=== PATIENT | male | born 1970 | race African-American/Black ===

== ENCOUNTER 2017-06-24 12:21 | Emergency (ER) | payer SELFPAY ==
[2017-06-24 12:50] VITALS: BP 169/102
[2017-06-24] MEDS ORDERED: Lidocaine 2% PF * 5 ML VIAL IV ONE (13:25)
--- NOTE | 2017-06-24 13:39 | UC ---
Laceration HPI - HPI Summary HPI Summary: 47 y/o male presents to the urgent care c/o Pt was loading a piece of steel with coworkers and got cut with it on L middle finger. Pt states it hit the bone. Pt states happened today around 1145. - History Of Current Complaint Chief Complaint: UCLaceration Stated Complaint: FINGER LACERATION Time Seen by Provider: 06/24/17 13:37 Hx Obtained From: Patient Pain Intensity: 7 - Allergies/Home Medications Allergies/Adverse Reactions: Allergies Allergy/AdvReac Type Severity Reaction Status Date / Time shellfish derived Allergy Swelling Verified 06/24/17 12:41 PMH/Surg Hx/FS Hx/Imm Hx - Surgical History Surgical History: None - Social History Alcohol Use: None Substance Use Type: None Smoking Status (MU): Never Smoked Tobacco Physical Exam - Summary Physical Exam Summary: Vital Signs Reviewed: Yes General: well developed, well nourished male sitting in the examining table w/ o any apparent distress Eye Exam: Normal Eyes: Positive: Conjunctiva Clear - PERRLA, EOMI, fundi grossly normal ENT: Positive: Normal ENT inspection, Hearing grossly normal, Pharynx normal, TMs normal Neck: Positive: Supple, Nontender, No Lymphadenopathy Respiratory: Positive: Chest non-tender, Lungs clear, Normal breath sounds, No respiratory distress Cardiovascular: Positive: RRR, No Murmur, Pulses Normal, Brisk Capillary Refill Abdomen Description: Positive: Nontender, No Organomegaly, Soft. Negative: CVA Tenderness (R), CVA Tenderness (L) Bowel Sounds: Positive: Present Musculoskeletal: Positive: Strength Intact, ROM Intact, No Edema Neurological: Positive: Alert, Muscle Tone Normal Psychological Exam: Normal Skin: Positive:medial aspect of the left #3rd phalanx just above the DIPJ w/ a linear superficial laceration about 2.0cm in size, bleeding stooped w/ pressure , no foreign body observed. mild tenderness to palpation, . FROM of Lf hand, sensation intact, capillary refill brisk, and pulses WNL. Triage Information Reviewed: Yes Vital Signs: Initial Vital Signs Temp 99 F 06/24/17 12:43 Pulse 78 06/24/17 12:43 Resp 18 06/24/17 12:43 BP 169/102 06/24/17 12:43 Pulse Ox 98 06/24/17 12:43 Laceration Course/Dx - Differential Dx - Laceration/Wound Differental Diagnoses: Abrasion, Fracture, Laceration, Puncture Wound, Tendon Laceration Provider Diagnoses: 1- left #3rd phlanx superficial laceration repair. 2- Uncontrolled HTN Discharge - Discharge Plan Condition: Stable Disposition: HOME Prescriptions: Bacitracin OINTMENT* 1 applic TOPICAL BID #1 tube Cephalexin CAP* [Keflex CAP*] 500 mg PO TID #21 cap Naproxen TAB* [Naprosyn 250 mg TAB*] 250 mg PO Q8H PRN #30 tab PRN Reason: Pain Patient Education Materials: Care For Your Stitches (ED), Laceration (ED), Low- Sodium Diet (ED) Referrals: [facility] [Outside] - If Needed Additional Instructions: 1-Please take full course of antibiotic to avoid resistance. 2- Keep wound clean and dry and avoid excessive movement w/ your finger. 3- F/u suture removal in 10-12 days w/ your PCP or here at the urgent care. 4-Take Naproxen PO q6-8hrs prn after meals for pain or swelling. 5- If you develop fever or redness around your finger despite the antibiotic please go to the ER immediately or return to the Urgent care. 6-Your BP is elevated today. please decrease salt in your diet, monitor BP and if it continues to be elevated please f/u with your PCP for further management - Billing Disposition and Condition Condition: STABLE Disposition: HOME
== END 2017-06-24 15:00 | disposition home or self-care (01) ==
LOC: UCEAST 12:21
DX: S61.213A Laceration without foreign body of left middle finger without damage to nail, initial encounter (principal); W26.8XXA Contact with other sharp object(s), not elsewhere classified, initial encounter; Y93.89 Activity, other specified; Y92.9 Unspecified place or not applicable; Y99.0 Civilian activity done for income or pay; I10 Essential (primary) hypertension
CPT/HCPCS: 12001; 99202; G0463